=== PATIENT | male | born 1990 | race Caucasian/White ===

== ENCOUNTER 2016-12-23 10:03 | Emergency (ER) | payer OTHER ==
[~2016-12-23] VITALS: Ht 165.1 cm; Wt 95.5 kg
[2016-12-23 10:06] VITALS: Ht 165.1 cm; Wt 95.5 kg
[2016-12-23] MEDS ORDERED: FLUORESCEIN STRIP LEFT EYE ONE (11:00)
[2016-12-23] MEDS ORDERED: POLY10DR19 BOTH EYES (11:28)
[2016-12-23] MEDS ORDERED: IBUP-1542 PO (11:28)
--- NOTE | 2016-12-23 14:01 | ERD ---
ER Documentation Chief Complaint Date/Time DATE: 12/23/16 TIME: 13:58 Chief Complaint headache x 2 days HPI 26-year-old male emergency department with a frontal headache for the past, and discharged to his left eye since this morning. He describes as a frontal headache that is pressure-like, he states that improved after taking ibuprofen last night. Patient states that he has been under a lot of stress, including work, home life as well. He states that since the discharge happened, patient reports he has had blurry vision. No diplopia, no curtain effect, no loss of visual schroeder. ROS All systems reviewed and are negative except as per history of present illness. Medications Home Meds Active Scripts Ibuprofen* (Motrin*) 600 Mg Tab, 600 MG PO Q6, #30 TAB Prov:BRE DE LA FUENTE PA-C 12/23/16 Polymyxin B Sulfate-TMP* (Polymyxin B-TMP Eye Drops*) 10 Ml Drops, 1 DROP BOTH EYES QID for 7 Days, EA Prov:BRE DE LA FUENTE PA-C 12/23/16 Allergies Allergies: Coded Allergies: No Known Allergy (Unverified , 12/23/16) PMhx/Soc Medical and Surgical Hx: pt denies Medical Hx, pt denies Surgical Hx Hx Alcohol Use: No Hx Substance Use: No Hx Tobacco Use: No Physical Exam Vitals Vital Signs Date Time Temp Pulse Resp B/P Pulse Ox O2 Delivery O2 Flow Rate FiO2 12/23/16 10:06 97.4 60 16 133/58 98 Physical Exam General: Well-developed, well-nourished. The patient appears in no acute distress. HEENT: Head is normocephalic, atraumatic. No scleral icterus. Extraocular movements intact, eyes are Juan Carlos. White discharge to bilateral medial canthi. No injection, no fluorescein uptake. Right eye is 20/25, left eye 20/20, bilateral 20/25. Dov-Pen readings are 20 and 18 Neck: Supple. Nontender. Lungs: Clear to auscultation. Normal air movement. Heart: Regular rate and rhythm. S1 and S2 are normal. No murmurs, gallops, or rubs. Abdomen: Nondistended. Extremities: No clubbing or cyanosis. Moving extremities x 4. No weakness. Neuro: M/S: Alert and oriented Face: EOMI, CN II-XII grossly intact Motor: Normal strength throughout Sensation: Normal sensation throughout Speech: Normal Cerebel: Normal coordination Normal gait Normal finger to nose DTR: 2+ and symmetric upper/lower extremities Skin: Normal turgor. No rash or lesions. Results 24 hrs Current Medications Medications (Trade) Dose Ordered Sig/Tabitha Route PRN Reason Start Time Stop Time Status Last Admin Dose Admin Fluorescein Sodium (Slufx-O-Ptpzi) 1 strip ONCE ONCE LEFT EYE 12/23/16 11:00 12/23/16 11:01 DC Procedures/MDM 26-year-old male comes in with headache, likely tension versus migraine headache. There are no signs of acute angle-closure glaucoma. No signs of periorbital cellulitis, orbital cellulitis, globe rupture, herpetic ophthalmicus , keratitis, corneal ulcer. He does have some scant discharge on the medial canthi of both eyes, will be treated for conjunctivitis. Departure Diagnosis: Primary Impression: Headache Condition: Good Patient Instructions: Self-Care for Headaches, Conjunctivitis, Bacterial Referrals: [facility] Hours: Mon - Tue 9:00 AM - 5:00 PM Additional Instructions: QC MANAGER: YOU HAVE A MEDICAL CONDITION WHICH REQUIRES YOU TO SEE A SPECIALIST WITHIN THE NEXT 1-2 DAYS. PLEASE FOLLOW UP WITH YOUR PRIMARY PHYSICIAN FOR REFFERAL.IF YOU DO NOT HAVE A PRIMARY CARE PHYSICIAN AND/OR YOU CAN NOT AFFORD TO SEE A PHYSICIAN THE FOLLOWING RESOURCES HAVE BEEN SUPPLIED TO YOU. IT IS YOUR RESPONSIBILITY TO BE SEEN BY THE SPECIALIST BRE DE LA FUENTE PA-C Dec 23, 2016 14:01
== END 2016-12-23 12:49 | disposition home or self-care (01) ==
LOC: FTE 10:03
DX: R51 Headache (principal)
CPT/HCPCS: Z7502; Z7610; 99283

== ENCOUNTER 2017-08-26 13:31 | Emergency (ER) | END 2017-08-26 18:00 | disposition home or self-care (01) ==